=== PATIENT | male | born 1965 | race American Indian/Alaskan Native ===

== ENCOUNTER 2023-01-14 10:53 | Emergency (ER) | payer OTHER ==
[2023-01-14 10:59] VITALS: RESP 18; BMI 24.3
[2023-01-14] MEDS ORDERED: ACETAMINOPHEN 500 MG TABLET (FP) PO ONE (11:30)
[2023-01-14] MEDS ORDERED: METHOCARBAMOL 750 MG TAB PO ONE (11:31)
[2023-01-14] MEDS ORDERED: KETOROLAC TROMETHAMINE 30 MG/1 ML VIAL IM ONE (11:31)
[2023-01-14] MEDS ORDERED: METHOCARBAMOL 500 MG TABLET ONE (11:35)
[2023-01-14] MEDS ORDERED: ACETAMINOPHEN 325 MG TABLET (FP) ONE (11:35)
[2023-01-14] MEDS ORDERED: KETOROLAC TROMETHAMINE 30 MG/1 ML VIAL ONE (11:35)
[2023-01-14 12:16] LABS: BASO % 0.3 % (0-2.0); HEMATOCRIT 41.1 % (35.4-49); HEMOGLOBIN 14.1 GM/dL (11.7-16.9); LYMPH % 17.3 % (8-40); MCHC 34.4 g/dl (32.0-35.9); MEAN PLT VOLUME 7.7 fl (7.5-11.1); MONO % 6.4 % (3.8-10.2); PLATELET COUNT 168 10^3/uL (134-434); RBC 4.57 M/mm3 (4.00-5.60); RDW 12.9 % (11.9-15.9); WHITE BLOOD COUNT 9.6 K/mm3 (4.0-10.0)
[2023-01-14 12:41] LABS: POTASSIUM 3.8 mmol/L (3.5-5.1)
[2023-01-14 12:42] LABS: CALCIUM 9.8 mg/dL (8.5-10.1)
[2023-01-14 12:43] LABS: ALBUMIN 4.1 g/dl (3.4-5.0); BLOOD UREA NITROGEN 22.6 mg/dL (7-18)
[2023-01-14 12:46] LABS: CREATININE 1.4 mg/dL (0.55-1.3)
[2023-01-14 12:47] LABS: BILIRUBIN,TOTAL 1.1 mg/dL (0.2-1); TOT PROT 7.8 g/dl (6.4-8.2)
[2023-01-14 15:09] VITALS: BP 135/91; PULSE 59; TEMP 97.5
== END 2023-01-14 16:15 | disposition home or self-care (01) ==
LOC: JER 10:53
PROC: 3E0233Z Introduction of Anti-inflammatory into Muscle, Percutaneous Approach (ICD-10-PCS; principal; 2023-01-14)
DX: M54.2 Cervicalgia (principal); M54.9 Dorsalgia, unspecified
CPT/HCPCS: 0241U-QW; 36415; 70491-TC; 80053; 85025; 86308; 87651; 99285-25; Q9967